=== PATIENT | female | born 1980 | race Caucasian/White ===

== ENCOUNTER 2018-05-18 03:14 | Inpatient (IN) | payer OTHER ==
[2018-05-18] MEDS ORDERED: Penicillin G Potassium IV* 5,000,000 UNITS in NS 0.9% 100 ML* 100 ML IVPB ONE (03:30)
[2018-05-18 03:41] LABS: Hematocrit 33 % (35-47); Hemoglobin 11.2 g/dl (12.0-16.0); Mean Corpuscular HGB Conc 34 g/dl (31-36); Mean Corpuscular Hemoglobin 32 pg (27-31); Mean Corpuscular Volume 95 fL (80-97); Mean Platelet Volume 9.7 um3 (7.4-10.4); Platelet Count 182 10^3/ul (150-450); Red Blood Count 3.48 10^6/ul (4.00-5.40); Red Cell Distribution Width 14 % (10.5-15); White Blood Count 17.9 10^3/ul (3.5-10.8)
--- NOTE | 2018-05-18 03:41 | HP ---
General Information - Reason for Visit active labor - General Information Maternal Age: 38 Grav: 5 Para: 4 Estimated Due Date: 05/28/18 Determined By: LMP Gestational Age in Weeks/Days: 38.4 Maternal Blood Type and Rh: A Negative - Results this Serology/RPR Result: Non-Reactive Rubella Result: Immune HBsAg Result: Negative HIV Result: Negative GBS Culture Result: Positive Past Medical History Delivery History: Hx Uncomplicated Vaginal Delivery Pertinent Past Medical History: See Records - hx anxiety Pertinent Past Surgical History: None Pertinent Family History: See Records - DM - Antepartal Records Antepartal Records: Reviewed, Complicated by: - AMA, tobacco use, low lying placenta (Resolved 02/20/18) Review of Systems Constitutional: Uncomfortable CV Complaint: No Respiratory: Shortness of Breath: No Gastrointestinal: No Nausea/Vomiting, Normal Bowel Movement Genitourinary: No Dysuria, No Bleeding, No Leaking Fluid, Spotting Musculoskeletal: Contractions Neurological: No Headache, No Visual Changes Movement: Normal Exam Allergies/Adverse Reactions: Allergies No Known Allergies Allergy (Verified 05/18/18 03:45) P:91, R:20, B/P: 134/67, O2: 100 - Measurements Height: 5 ft 7 in Weight: 175 lb Body Mass Index (BMI): 27.3 Pre- Weight: 143 lb - Exam Breast: Breast Exam Deferred CVA: No CVA Tenderness Extremities: No Edema Heart: Normal Rhythm/Heart Sounds HEENT: No Significant Findings Lungs: Clear Bilaterally Rectal: Rectal Exam Deferred Reflexes: DTR 2+ Thyroid: No Thyromegaly - Abdominal Exam Abdomen Exam: Non-Tender, Fundal Height Consistent with Dates Targeted Exam Findings Estimated Weight: 7.5 Cervical Exam: 7cm Effacement: 90% Station: +1 Presenting Part: Vertex Membrane Status: Intact Bleeding/Discharge: Bloody Show EFM Findings - External Monitor Findings Baseline Heart Rate: 135 External Monitor Findings: Accelerations Present, No Pattern of Variable or Late Decelerations, Variability Moderate, Baseline Stable Contractions: Regular, Strong, 45-90 Seconds Contraction Frequency: 3-5 Assessment/Plan - Assessment 38 y.o. at 38w4d EGA, active labor - Obstetrical Risk Factors Obstetrical Risk Factors: GBS Positive - Plan Plan: Antibiotic Prophylaxis, Admit - Anticipate Vaginal Delivery - Date/Time of Admission Date of Admission: 05/18/18 Time of Admission: 03:35
[2018-05-18] MEDS ORDERED: Oxytocin in LR* 20 UNITS/1,000 ML BAG IVPB ONE (04:05)
[2018-05-18] MEDS ORDERED: Acetaminophen TAB* 325 MG PO PRN (04:20)
[2018-05-18] MEDS ORDERED: Witch Hazel PAD* JAR TOPICAL PRN (04:20)
[2018-05-18] MEDS ORDERED: Dibucaine 1% 28.35 GM TUBE PR PRN (04:20)
[2018-05-18] MEDS ORDERED: RHO D Immune Globulin (HUMAN)* 300 MCG = 1,500 I.U. INJ IM ONE (04:20)
[2018-05-18] MEDS ORDERED: Glycerin ADULT SUPP PR PRN (04:20)
[2018-05-18 04:22] LABS: ABS Basophils 0.3 10^3/ul (0-0.2); ABS Eosinophils 0.3 10^3/ul (0-0.6); ABS Lymphocytes 6.2 10^3/ul (1.0-4.8); ABS Monocytes 1.2 10^3/ul (0-0.8); ABS Neutrophils 10.1 10^3/ul (1.5-7.7); ABS Nucleated RBC 0 10^3/ul
--- NOTE | 2018-05-18 04:26 | PROCNOTE ---
[facility] OB: Delivery Note - Delivery A Date of : 05/18/18 Time of : 04:02 Sex: Male Score 1 Minute: 8 Score 5 Minutes: 9 Gestational Age in Weeks and Days at Delivery: 38 Weeks and 4 Days Delivery Method: Spontaneous Vaginal Labor: Spontaneous Did Patient attempt ?: N/A, No Previous Amniotic Fluid: Clear Estimated Blood Loss: 150 Anesthesia/Analgesia: None, Nitrous-Labor - for 1 min Delivered By: Tamika Mansfield - Nursery Level of Nursery: Regular/Bedside - Perineum Perineal Injury: Abrasion Only - Not Repaired - Events Delivery Events of Note: Pitocin Only After Delivery, Partial Course of Antibiotics Delivery Events of Note Comment: nuchal cord x 1
[2018-05-18] MEDS ORDERED: Oxytocin in LR* 20 UNITS/1,000 ML BAG IVPB SCH (05:00)
[2018-05-18 05:15] LABS: Eosinophil % 1.7 % (0-6); Lymphocyte % 34.3 % (25-47); Nucleated Red Blood Cells % 0.2
[2018-05-18] MEDS ORDERED: Simethicone TAB* 80 MG TAB.CHEW PO SCH (08:30)
[2018-05-18] MEDS: Docusate CAP* 100 MG PO SCH ×3 (09:00→23:42)
[2018-05-18] MEDS: Ibuprofen TAB* 600 MG PO PRN ×3 (11:08→23:41)
[2018-05-19 06:32] LABS: Hematocrit 29 % (35-47); Hemoglobin 9.9 g/dl (12.0-16.0); Mean Corpuscular HGB Conc 35 g/dl (31-36); Mean Corpuscular Hemoglobin 33 pg (27-31); Mean Corpuscular Volume 95 fL (80-97); Mean Platelet Volume 9.3 um3 (7.4-10.4); Platelet Count 154 10^3/ul (150-450); Red Cell Distribution Width 14 % (10.5-15); White Blood Count 18.3 10^3/ul (3.5-10.8)
[2018-05-19 08:06] LABS: ABS Basophils 0.2 10^3/ul (0-0.2); ABS Eosinophils 0.3 10^3/ul (0-0.6); ABS Lymphocytes 5.5 10^3/ul (1.0-4.8); ABS Monocytes 1.3 10^3/ul (0-0.8); ABS Nucleated RBC 0 10^3/ul; Eosinophil % 1.7 % (0-6); Lymphocyte % 30.2 % (25-47); Nucleated Red Blood Cells % 0.2
[2018-05-19] MEDS: Ferrous Gluconate TAB* 324 MG TAB PO SCH ×2 (09:26→19:32)
[2018-05-19] MEDS: Docusate CAP* 100 MG PO SCH ×2 (09:29→15:58)
[2018-05-19] MEDS: Ibuprofen TAB* 600 MG PO PRN (17:56)
[2018-05-20 08:21] VITALS: BP 102/63
[2018-05-20] MEDS: Docusate CAP* 100 MG PO SCH (09:06)
[2018-05-20] MEDS: Ferrous Gluconate TAB* 324 MG TAB PO SCH (09:06)
== END 2018-05-20 10:26 | disposition home or self-care (01) | DRG 560 ==
LOC: MCHOBOUT 03:14 → MCHOB 03:18
PROVIDERS: ADMIT Midwife; ATTEND Midwife
PROC: 10E0XZZ Delivery of Products of Conception, External Approach (ICD-10-PCS; principal; 2018-05-18)
DX: O60.23X1 Term delivery with preterm labor, third trimester, fetus 1 (principal); O99.824 Streptococcus B carrier state complicating childbirth; O99.344 Other mental disorders complicating childbirth; F41.9 Anxiety disorder, unspecified; O99.334 Smoking (tobacco) complicating childbirth; F17.210 Nicotine dependence, cigarettes, uncomplicated; O69.81X0 Labor and delivery complicated by cord around neck, without compression, not applicable or unspecified; O90.81 Anemia of the puerperium; D64.9 Anemia, unspecified; Z3A.38 38 weeks gestation of pregnancy; Z37.0 Single live birth
CPT/HCPCS: 36415; 85025; 85060; 85461; 86850; 86900; 86901; A9270-GY; J2540; J2790